=== PATIENT | female | born 1960 | race Hispanic/Latino ===

== ENCOUNTER → 2022-04-26 | Outpatient (CLI) | payer MEDICAID ==
[~2022-04-26] MED LIST: BALSAM PERU/CASTOR OIL 60 GM TUBE TP ONE; LIDOCAINE HCL 4% LTA SOL 4 ML VIAL ONE
== END | disposition home or self-care (01) ==
LOC: WHH 10:43
PROVIDERS: ATTEND Family Medicine
DX: L89.152 Pressure ulcer of sacral region, stage 2 (principal); L89.312 Pressure ulcer of right buttock, stage 2; L89.322 Pressure ulcer of left buttock, stage 2; E11.621 Type 2 diabetes mellitus with foot ulcer; L97.422 Non-pressure chronic ulcer of left heel and midfoot with fat layer exposed; I10 Essential (primary) hypertension; E78.5 Hyperlipidemia, unspecified; E66.01 Morbid (severe) obesity due to excess calories; M81.0 Age-related osteoporosis without current pathological fracture; Z68.44 Body mass index [BMI] 60.0-69.9, adult; Z86.73 Personal history of transient ischemic attack (TIA), and cerebral infarction without residual deficits; Z79.899 Other long term (current) drug therapy; Z96.659 Presence of unspecified artificial knee joint
CPT/HCPCS: 99205; 11042; A6209; A4450

== ENCOUNTER → 2022-05-24 | Outpatient (CLI) | payer MEDICAID | END | disposition home or self-care (01) | LOC: WHH 09:05 | PROVIDERS: ATTEND Family Medicine | DX: E11.621 Type 2 diabetes mellitus with foot ulcer (principal); L97.422 Non-pressure chronic ulcer of left heel and midfoot with fat layer exposed; L89.152 Pressure ulcer of sacral region, stage 2; L89.312 Pressure ulcer of right buttock, stage 2; L89.322 Pressure ulcer of left buttock, stage 2; I10 Essential (primary) hypertension; E78.5 Hyperlipidemia, unspecified; E66.01 Morbid (severe) obesity due to excess calories; M81.0 Age-related osteoporosis without current pathological fracture; Z68.44 Body mass index [BMI] 60.0-69.9, adult; Z86.73 Personal history of transient ischemic attack (TIA), and cerebral infarction without residual deficits; Z79.899 Other long term (current) drug therapy; Z96.659 Presence of unspecified artificial knee joint | CPT/HCPCS: 11042; A6209 ==

== ENCOUNTER → 2022-06-14 | Outpatient (CLI) | payer MEDICAID | END | disposition home or self-care (01) | LOC: WHH 09:17 | PROVIDERS: ATTEND Family Medicine | DX: E11.621 Type 2 diabetes mellitus with foot ulcer (principal); L97.422 Non-pressure chronic ulcer of left heel and midfoot with fat layer exposed; L89.152 Pressure ulcer of sacral region, stage 2; L89.312 Pressure ulcer of right buttock, stage 2; L89.322 Pressure ulcer of left buttock, stage 2; I10 Essential (primary) hypertension; E78.5 Hyperlipidemia, unspecified; M81.0 Age-related osteoporosis without current pathological fracture; E66.01 Morbid (severe) obesity due to excess calories; Z68.44 Body mass index [BMI] 60.0-69.9, adult; Z86.73 Personal history of transient ischemic attack (TIA), and cerebral infarction without residual deficits; Z79.899 Other long term (current) drug therapy; Z96.659 Presence of unspecified artificial knee joint | CPT/HCPCS: 11042; A6209 ==

== ENCOUNTER → 2022-08-02 | Outpatient (CLI) | payer MEDICAID ==
[~2022-08-02] MED LIST changes: -BALSAM PERU/CASTOR OIL 60 GM TUBE TP ONE; +ESMOLOL HCL 10 MG/ML 10 ML VIAL ONE; +FENTANYL CITRATE PF 50 MCG/1 ML 2ML VIAL ONE; +HEPARIN 1,000 UNIT VIAL ONE; +HEPARIN 10,000 UNIT/10ML (1,000 UNIT/ML) VIAL ONE; +IOHEXOL 350 MG/ML 100ML INFUS..BTL IV ONE; +IOHEXOL-350 75 ML VIAL IV ONE; -LIDOCAINE HCL 4% LTA SOL 4 ML VIAL ONE; +LIDOCAINE HCL 400MG/20ML VIAL ONE; +NEOSTIGMINE 5MG/5ML SYR IV ONE; +NITROGLYCERIN 50MG VIAL ONE; +ONDANSETRON 4MG INJ ONE; +PHENYLEPHRINE HCL 10 MG/ML 1ML VIAL IV ONE; +PROMETHAZINE HCL 25 MG/ML 1ML AMPULE IM ONE; +PROTAMINE SULFATE 10 MG/ML 25ML VIAL IV ONE; +ROCURONIUM BROMIDE 10MG/1ML 5ML VL ONE; +SODIUM BICARB 50MEQ 50ML VIAL 50 ML ONE; +SUGAMMADEX SODIUM 200 MG/2 ML VIAL IV ONE; +VASOPRESSIN 20 UNITS/ML 1ML VIAL ONE
== END | disposition home or self-care (01) ==
LOC: WHH 10:09
PROVIDERS: ATTEND Family Medicine
DX: E11.621 Type 2 diabetes mellitus with foot ulcer (principal); L97.428 Non-pressure chronic ulcer of left heel and midfoot with other specified severity; L89.152 Pressure ulcer of sacral region, stage 2; L89.312 Pressure ulcer of right buttock, stage 2; L89.322 Pressure ulcer of left buttock, stage 2; I10 Essential (primary) hypertension; E78.5 Hyperlipidemia, unspecified; M81.0 Age-related osteoporosis without current pathological fracture; E66.01 Morbid (severe) obesity due to excess calories; Z68.44 Body mass index [BMI] 60.0-69.9, adult; Z86.73 Personal history of transient ischemic attack (TIA), and cerebral infarction without residual deficits; Z79.899 Other long term (current) drug therapy; Z96.659 Presence of unspecified artificial knee joint
CPT/HCPCS: 99214; J1644; J2370; J2405; J2550; J2710; J2720; J3010; J3490; Q9967